=== PATIENT | male | born 1995 | race Caucasian/White ===

== ENCOUNTER 2017-07-11 18:30 | Emergency (ER) | payer SELFPAY | END 2017-07-11 19:41 | disposition home or self-care (01) | LOC: D.ER 18:30 | DX: S61.411A Laceration without foreign body of right hand, initial encounter (principal); W26.9XXA Contact with unspecified sharp object(s), initial encounter; Y93.89 Activity, other specified; Y92.89 Other specified places as the place of occurrence of the external cause ==

== ENCOUNTER 2017-07-21 10:09 | Emergency (ER) | payer SELFPAY | END 2017-07-21 10:43 | disposition home or self-care (01) | LOC: D.ER 10:09 | DX: S61.411D Laceration without foreign body of right hand, subsequent encounter (principal); X58.XXXD Exposure to other specified factors, subsequent encounter; Y92.029 Unspecified place in mobile home as the place of occurrence of the external cause; Z48.02 Encounter for removal of sutures ==